=== PATIENT | female | born 2005 | race Caucasian/White ===

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

== ENCOUNTER 2024-01-17 21:16 | Inpatient (IN) | payer MEDICAID, OTHER ==
[~2024-01-17] VITALS: Ht 160 cm; Wt 137.1 kg
[2024-01-17 22:18] LABS: HEMATOCRIT 38.9 % (36.0-47.0); HEMOGLOBIN 13.6 g/dl (12.0-15.5); MEAN CORPUSCULAR HEMOGLOBIN 29.6 pg (27.0-33.0); MEAN CORPUSCULAR VOLUME 84.6 fl (80.0-96.0); PLATELET COUNT, AUTOMATED 294 10^3/uL (150-450); WHITE BLOOD COUNT 10.7 10^3/uL (4.0-10.0)
[2024-01-17 22:49] LABS: AMPHETAMINES LEVEL URINE NEGATIVE (NEGATIVE); BARBITURATES URINE NEGATIVE (NEGATIVE); BENZODIAZEPINES URINE NEGATIVE (NEGATIVE); COCAINE METABOLITE URINE NEGATIVE (NEGATIVE); METHADONE URINE NEGATIVE (NEGATIVE); OPIATES URINE NEGATIVE (NEGATIVE)
[2024-01-17 22:50] LABS: CANNABINOIDS URINE NEGATIVE (NEGATIVE); PHENCYCLIDINE URINE NEGATIVE (NEGATIVE)
[2024-01-17 22:52] LABS: ETHYL ALCOHOL (ETHANOL) 0.003 % (0.000-0.010)
[2024-01-17 22:53] LABS: ALBUMIN 3.7 G/DL (3.2-5.2); ALKALINE PHOSPHATASE 73 U/L (46-116); ALT/SGPT 21 U/L (7.0-40); AST/SGOT < 8 U/L (<34); BILIRUBIN,DIRECT 0.1 MG/DL (<0.4); BILIRUBIN,TOTAL 0.4 MG/DL (0.3-1.2); BLOOD UREA NITROGEN 11 MG/DL (9-23); CALCIUM LEVEL 9.2 MG/DL (8.5-10.1); CARBON DIOXIDE LEVEL 24 MMOL/L (20-31); CHLORIDE LEVEL 107 MMOL/L (98-107); GLUCOSE, FASTING 92 MG/DL (60-100); POTASSIUM SERUM 3.7 MMOL/L (3.5-5.1); SALICYLATE LEVEL < 3.0 MG/DL (<30); SODIUM LEVEL 139 MMOL/L (136-145); TOTAL PROTEIN 6.9 G/DL (5.7-8.2)
[2024-01-18 00:05] LABS: HCG, SERUM QUALITATIVE NEGATIVE (NEGATIVE)
[2024-01-18] MEDS ORDERED: ZONI50CA11 PO (00:10)
[2024-01-18] MEDS ORDERED: DULO60CA35 PO (00:10)
[2024-01-18] MEDS ORDERED: PROP10TA56 PO (00:10)
[2024-01-18] MEDS ORDERED: MELA1TAB31 PO (00:12)
[2024-01-18] MEDS ORDERED: C-251TAB PO (00:12)
[2024-01-18] MEDS ORDERED: ASPI-615 PO (00:12)
[2024-01-18] MEDS ORDERED: HOME MED LIST COMPLETE! XX SCH (00:15)
[2024-01-18] MEDS: ZONISAMIDE 50 MG CAP (ZONEGRAN) PO ONE (00:43)
[2024-01-18] MEDS: PROPRANOLOL 10 MG TAB PO ONE (00:43)
[2024-01-18] MEDS: diphenhydrAMINE 25MG CAP PO ONE (00:44)
[2024-01-18] MEDS: ASPIRIN 81MG CHEW TABLET PO ONE (00:44)
[2024-01-18] MEDS: DULoxetine 30MG CAPSULE (CYMBALTA) PO SCH (11:04)
[2024-01-18] MEDS: ASCORBIC ACID 500 MG TAB PO SCH (11:04)
[2024-01-18] MEDS ORDERED: MOM 30ML SUSPENSION UDC PO PRN (19:00)
[2024-01-18] MEDS ORDERED: diphenhydrAMINE 25MG CAP PO PRN (19:00)
[2024-01-18] MEDS ORDERED: IBUPROFEN 400MG TAB PO PRN (19:00)
[2024-01-18] MEDS ORDERED: ACETAMINOPHEN TAB 650MG DOSE (2X325MG) PO PRN (19:00)
[2024-01-18] MEDS ORDERED: MAALOX 30 ML SUSP *UDC PO PRN (19:00)
[2024-01-18 20:01] VITALS: BP 134/94; TEMP 97; O2SAT 96
[2024-01-18] MEDS: traZODone 50 MG TAB PO PRN (21:16)
[2024-01-19 06:11] VITALS: BP 103/66; TEMP 97; O2SAT 98
[2024-01-19] MEDS: NICOTINE 21MG/24HR 1 EA TRANSDERMAL TD SCH (12:00)
[2024-01-19 16:45] VITALS: BP 144/79; TEMP 97.1; O2SAT 96
[2024-01-20 06:02] VITALS: BP 98/59; TEMP 97.5; O2SAT 94
[2024-01-20] MEDS: DULoxetine 30MG CAPSULE (CYMBALTA) PO SCH (11:30)
[2024-01-20 16:00] VITALS: BP 136/80; TEMP 97.3; O2SAT 96
[2024-01-20] MEDS ORDERED: DULoxetine 30MG CAPSULE (CYMBALTA) PO SCH (21:00)
[2024-01-21 07:07] VITALS: BP 99/54; TEMP 97.5; O2SAT 99
[2024-01-21 18:41] VITALS: BP 141/80; TEMP 98
[2024-01-21 18:46] VITALS: BP 131/89; TEMP 98
[2024-01-21 20:00] LABS: Trichomonas vaginalis (AMP) NOT DETECTED (NEGATIVE)
[2024-01-21 20:24] LABS: GC DNA AMPLIFICATION NEGATIVE (NEGATIVE)
[2024-01-22 06:28] VITALS: BP 103/59; TEMP 97.5; O2SAT 96
[2024-01-22] MEDS ORDERED: CYMB1CAP5 PO (10:03)
== END 2024-01-22 12:15 | disposition home or self-care (01) | DRG 754 ==
LOC: M ED 21:16 → M ED INP 01-18 18:58 → M PSY 01-18 19:58
PROVIDERS: ADMIT Student in an Organized Health Care Education/Training Program; ATTEND Student in an Organized Health Care Education/Training Program
DX: F32.A Depression, unspecified (principal); R45.851 Suicidal ideations; F10.10 Alcohol abuse, uncomplicated; F60.3 Borderline personality disorder; Z79.82 Long term (current) use of aspirin; Z79.899 Other long term (current) drug therapy; F41.9 Anxiety disorder, unspecified; D72.829 Elevated white blood cell count, unspecified

== ENCOUNTER → 2024-09-04 | Outpatient (REF) | payer MEDICAID, OTHER ==
[~2024-09-04] MED LIST changes: +ASPI-615 PO; +C-251TAB PO; +CYMB1CAP5 PO; +DULO60CA35 PO; +MELA1TAB31 PO; +PROP10TA56 PO; +ZONI50CA11 PO
== END ==
LOC: M SFHCWAGY 12:17
PROVIDERS: ATTEND Nurse Practitioner Family
DX: Z53.9 Procedure and treatment not carried out, unspecified reason (principal)

== ENCOUNTER → 2025-03-13 | Outpatient (REF) | payer OTHER ==
[~2025-03-13] MED LIST changes: +MELA5TAB44 PO; -MELA5TAB7 PO
[2025-03-13 18:30] LABS: ESTIMATED AVERAGE GLUCOSE 94.0 MG/DL (60-110)
[2025-03-13 18:34] LABS: ALT/SGPT 25 U/L (7.0-40); AST/SGOT 21 U/L (<34); CALCIUM LEVEL 9.1 MG/DL (8.5-10.1); CARBON DIOXIDE LEVEL 28 MMOL/L (20-31); CHLORIDE LEVEL 107 MMOL/L (98-107); CHOLESTEROL LEVEL 129 MG/DL (<200); CHOLESTEROL RISK RATIO 3.28 (<5); CREATININE FOR GFR 0.64 MG/DL (0.55-1.30); GLOMERULAR FILTRATION RATE > 90.0 (>60); LDL CHOLESTEROL 71.5 MG/DL (<100); NON-HDL-C 89.7 MG/DL; POTASSIUM SERUM 4.1 MMOL/L (3.5-5.1); SODIUM LEVEL 142 MMOL/L (136-145); TRIGLYCERIDES LEVEL 91 MG/DL (<150)
[2025-03-13 18:38] LABS: PLATELET COUNT, AUTOMATED 176 10^3/uL (150-450)
[2025-03-13 19:37] LABS: HIV 1&2 SCREEN NEGATIVE (NEGATIVE)
[2025-03-13 19:44] LABS: HEPATITIS C VIRUS ABY INDEX 0.02 INDEX (<0.8)
== END ==
LOC: M SFHCCLAY 14:17
PROVIDERS: ATTEND Family Medicine
DX: Z00.00 Encounter for general adult medical examination without abnormal findings (principal); Z11.4 Encounter for screening for human immunodeficiency virus [HIV]; Z11.59 Encounter for screening for other viral diseases; Z13.0 Encounter for screening for diseases of the blood and blood-forming organs and certain disorders involving the immune mechanism; Z13.220 Encounter for screening for lipoid disorders

== ENCOUNTER → 2025-06-24 | Outpatient (CLI) | payer OTHER ==
[~2025-06-24] MED LIST changes: -C-251TAB PO; +VITA250T28 PO
== END ==
LOC: M WHC 12:42
PROVIDERS: ATTEND Nurse Practitioner Family
DX: N92.1 Excessive and frequent menstruation with irregular cycle (principal); N85.8 Other specified noninflammatory disorders of uterus

== ENCOUNTER → 2025-06-24 | Outpatient (CLI) | payer OTHER ==
[2025-06-24 15:23] LABS: BASO # 0.0 10^3/uL (0.0-0.2); BASO % 0.4 % (0.0-1.0); EOS # 0.0 10^3/uL (0.0-0.5); EOS % 0.4 % (0.0-3.0); LYMPH # 2.4 10^3/uL (1.5-5.0); LYMPH % 29.2 % (24.0-44.0); MONO # 0.6 10^3/uL (0.0-0.8); MONO % 7.8 % (2.0-8.0); NEUTROPHILS # 5.1 10^3/uL (1.5-8.5); NEUTROPHILS % 62.1 % (36.0-66.0); PLATELET COUNT, AUTOMATED 269 10^3/uL (150-450)
[2025-06-24 15:56] LABS: FREE T4 1.47 NG/DL (0.83-1.43)
[2025-06-24 15:57] LABS: PROLACTIN 8.98 NG/ML
[2025-06-24 16:19] LABS: ESTIMATED AVERAGE GLUCOSE 91.0 MG/DL (60-110)
[2025-06-26 01:28] LABS: DEHYDROEPIANDROSTERONE SULFATE 177 mcg/dL (44-286)
== END ==
LOC: M PLALAB 12:51
PROVIDERS: ATTEND Nurse Practitioner Family
DX: N92.1 Excessive and frequent menstruation with irregular cycle (principal)